=== PATIENT | male | born 1990 | race African-American/Black ===

== ENCOUNTER 2018-09-01 07:56 | Emergency (ER) | payer OTHER ==
[~2018-09-01] VITALS: Ht 180.3 cm; Wt 59.0 kg
[2018-09-01 08:01] VITALS: BP 140/82
== END 2018-09-01 08:20 | disposition home or self-care (01) ==
LOC: ER 07:56
DX: H10.9 Unspecified conjunctivitis (principal); F17.210 Nicotine dependence, cigarettes, uncomplicated